=== PATIENT | female | born 1990 | race African-American/Black ===

== ENCOUNTER 2017-10-15 08:00 | Emergency (ER) | payer BC ==
[2017-10-15 08:04] VITALS: BP 141/79; PULSE 88; RESP 16; TEMP 98.6; O2SAT 100
--- NOTE | 2017-10-15 08:22 | PD ---
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 She reports pelvic pain with radiation to the back and up to the right flank. Patient reports a diagnosis of ovarian cyst recently however the pain today is different. Last menstruation was 2 weeks ago approximately. Patient reports trace vaginal bleeding after intercourse with her boyfriend. She denies abnormal discharge. She does not believe she is . She reports occasional urinary urgency however it is dissimilar from prior UTI symptoms. Patient reports compliance with Cipro which she is on following a GI bug which she got from traveling [place]. No fever. Duration about 2 days. PFSH Past Medical History ?: Not LMP: 09/21/17 Social History Tobacco Use: No Allergies-Medications (Allergen,Severity, Reaction): Coded Allergies: Sulfa (Sulfonamide Antibiotics) (Verified Allergy, Intermediate, rash, ) Reported Meds & Prescriptions Reported Meds & Active Scripts Active Flagyl (Metronidazole) 500 Mg Tab 500 Mg PO BID 7 Days Review of Systems Except as stated in HPI: all other systems reviewed are Neg General / Constitutional: No: Fever Physical Exam Narrative GENERAL: 27 yo F, WNWD, pleasant, NAD PELVIC: moderate thick white discharge. external genitalia normal. no significant tenderness. Vital Signs Date Time Temp Pulse Resp B/P (MAP) Pulse Ox O2 Delivery O2 Flow Rate FiO2 10/15/17 08:04 98.6 88 16 141/79 (99) 100 SKIN: Warm and dry. HEAD: Atraumatic. Normocephalic. EYES: Pupils equal and round. No scleral icterus. No injection or drainage. ENT: No nasal bleeding or discharge. Mucous membranes pink and moist. NECK: Trachea midline. No JVD. CARDIOVASCULAR: Regular rate and rhythm. RESPIRATORY: No accessory muscle use. Clear to auscultation. Breath sounds equal bilaterally. GASTROINTESTINAL: Soft. No focus of tenderness. MUSCULOSKELETAL: Extremities without clubbing, cyanosis, or edema. No obvious deformities. NEUROLOGICAL: Awake and alert. No obvious cranial nerve deficits. Motor grossly within normal limits. Five out of 5 muscle strength in the arms and legs. Normal speech. PSYCHIATRIC: Appropriate mood and affect; insight and judgment normal. Data Data Last Documented VS Vital Signs Date Time Temp Pulse Resp B/P (MAP) Pulse Ox O2 Delivery O2 Flow Rate FiO2 10/15/17 08:04 98.6 88 16 141/79 (99) 100 Orders Orders Gc And Chlamydia Pcr (10/15/17 08:18) Wet Prep Profile (10/15/17 08:18) Urinalysis - C+S If Indicated (10/15/17 08:18) Acetamin-Hydrocod 325-5 Mg ([place] 5-325 (10/15/17 08:30) Us Pelvis Comp W Doppler (10/15/17 08:28) Ed Discharge Order (10/15/17 08:54) Labs Laboratory Tests Test 10/15/17 08:31 Urine Color YELLOW Urine Turbidity CLEAR Urine pH 5.0 Urine Specific [place] GREATER/EQUAL 1.030 Urine Protein NEG mg/dL Urine Glucose (UA) NEG mg/dL Urine Ketones NEG mg/dL Urine Occult Blood NEG Urine Nitrite NEG Urine Bilirubin NEG Urine Urobilinogen 0.2 MG/DL Urine Leukocyte Esterase NEG Urine WBC 0-2 /hpf Urine Squamous Epithelial Cells 0-5 /hpf Microscopic Urinalysis Comment CULT NOT INDICATED Clue Cells (Wet Prep) PRESENT Vaginal Trichomonas (Wet Prep) NONE SEEN Vaginal Yeast (Wet Prep) NONE SEEN MDM Medical Decision Making Medical Screen Exam Complete: Yes Emergency Medical Condition: Yes Medical Record Reviewed: Yes Differential Diagnosis BV, GC/Chlamydia, IUP Narrative Course UA preg is negative UA negative Wet prep shows BV Flagyl script Diagnosis Primary Impression: Bacterial vaginosis Med/Other Pt SpecificInfo: Prescription(s) given Scripts Metronidazole (Flagyl) 500 Mg Tab 500 MG PO BID for Infection for 7 Days, #14 TAB 0 Refills Prov: Maximiliano Lieberman MD 10/15/17 Disposition: 01 DISCHARGE HOME Condition: Stable Maximiliano Lieberman MD Oct 15, 2017 08:22
[2017-10-15] MEDS ORDERED: ACETAMINOPHEN/HYDROcodone 325 MG/5 MG TAB PO ONE (08:30)
[2017-10-15 08:43] LABS: BILIRUBIN, URINE NEG (NEG); BLOOD, URINE NEG (NEG); GLUCOSE,URINE NEG (NEG); KETONE, URINE NEG (NEG); NITRITE,URINE NEG (NEG); URINE COLOR YELLOW (YELLW/STRAW); URINE LEUKOCYTE ESTERASE NEG (NEG)
[2017-10-15 08:49] LABS: SQUAMOUS EPITHELIAL CELL URINE 0-5 /hpf (0-5); WBC, URINE 0-2 /hpf (0-5)
[2017-10-15] MEDS ORDERED: METR-1 PO (08:52)
[2017-10-15] MEDS ORDERED: MULTTAB67 PO (08:57)
== END 2017-10-15 09:00 | disposition home or self-care (01) ==
LOC: PHED 08:00
DX: N76.0 Acute vaginitis (principal); B96.89 Other specified bacterial agents as the cause of diseases classified elsewhere; Z88.2 Allergy status to sulfonamides
CPT/HCPCS: 81001; 87210; 87491; 87591; 99283